=== PATIENT | male | born 1950 | race Caucasian/White ===

== ENCOUNTER 2016-12-01 19:46 | Inpatient (IN) ==
[2016-12-01] MEDS ORDERED: 0.9 % Sodium Chloride 1,000 ML IVC ONE (20:15)
--- NOTE | 2016-12-01 20:18 | Emergency Department Note ---
Disposition Clinical Impression: Pancolitis Leukocytosis Qualifiers: Leukocytosis type: unspecified Qualified Code(s): D72.829 - Elevated white blood cell count, unspecified Abdominal pain Qualifiers: Abdominal location: generalized Qualified Code(s): R10.84 - Generalized abdominal pain Disposition: Admitted As Inpatient Condition: Fair Abdominal Pain HPI - General Chief Complaint: ED Abdominal Pain Stated Complaint: 'abdominal pain" Source: patient Mode of arrival: EMS Limitations: no limitations Nursing Notes Reviewed: Yes Vital Signs Reviewed: Yes - History of Present Illness HPI Narrative: 66-year-old male history of hypertension and smoking abuse presents from the [place] for concerns of abdominal pain. Patient was evaluated the [facility] have lab work and a CAT scan of the abdomen pelvis performed. Patient states that she has been having these symptoms intermittently over the past 3 weeks. Patient finished a dose of Cipro and Flagyl 3 weeks ago. Patient has been having some issues of constipation in the past and was treated presumptively for diverticulitis. Patient states that he has been having intermittent abdominal pain it is noted be diffusely and worsened over the past 48 hours at the time of examination the patient is pain-free patient denies any dysuria or hematuria. Denies any fevers. Denies any history of inflammatory bowel disease. No chest pain or short of breath. Patient initially had issues with constipation and now has had a runny stool prior to arrival. Pt Subjective Complaint: abdominal pain Onset (ago): week(s) Consistency: intermittent Location: diffuse Pain Severity: now resolved - Related Data Home Medications Medication Instructions Recorded Confirmed Bisacodyl [Dulcolax] 10 mg RC AD PRN 12/01/16 12/01/16 Bisacodyl [Dulcolax] 15 mg PO HS PRN 12/01/16 12/01/16 Lisinopril [Zestril] 10 mg PO DAILY 12/01/16 12/01/16 Pantoprazole Sodium [Protonix] 40 mg PO DAILY 12/01/16 12/01/16 Simvastatin [Zocor] 10 mg PO HS 12/01/16 12/01/16 Tamsulosin [Flomax] 0.4 mg PO DAILY 12/01/16 12/01/16 Allergies Allergy/AdvReac Type Severity Reaction Status Date / Time No Known Allergies Allergy Verified 12/01/16 19:55 All systems ED: reviewed and negative except as stated. Constitutional: Reports: as per HPI. Denies: fever Eyes: Reports: as per HPI ENT ED: Reports: as per HPI Cardiovascular: Reports: as per HPI. Denies: chest pain Respiratory: Reports: as per HPI. Denies: dyspnea Gastrointestinal: Reports: as per HPI, abdominal pain, diarrhea. Denies: nausea , vomiting Genitourinary: Reports: as per HPI Musculoskeletal: Reports: as per HPI. Denies: back pain Integumentary: Reports: as per HPI Neurological: Reports: as per HPI Psychiatric: Reports: as per HPI Abdominal Pain PMH - Past Medical History Medical history: Reports: hypertension Physical Exam - General Limitations: no limitations General appearance: alert, in no apparent distress - Head Head exam: atraumatic, normal inspection - Eye Eye exam: Present: normal appearance, EOMI - ENT ENT exam: normal exam, mucous membranes moist - Neck Neck exam: Present: normal inspection, trachea midline - Chest Chest inspection: Present: normal inspection, symmetric chest wall rise - Respiratory Respiratory exam: Present: other (Diffusely decreased lung sounds). Absent: respiratory distress - Cardiovascular Cardiovascular exam: Present: regular rate, normal rhythm - Abdominal Exam Abdominal exam: Present: soft, Non-Tender. Absent: distention, guarding, rebound - Extremities Exam Extremities exam: Present: normal inspection. Absent: pedal edema - Back Exam Back exam: Present: normal inspection - Neurological Exam Neurological exam: Present: alert, oriented X3 - Skin Skin exam: Present: warm, dry, intact, normal color Course Course Narrative: Patient seen and examined earlier today at the [place]. Patient had a CAT scan of abdomen and pelvis done which shows pancolitis possibly related to C. difficile colitis but inflammatory bowel disease or less likely ischemic bowel disease cannot be excluded. Patient abdominal exam at the time of my arrival is benign. Nonsurgical. Patient resting, in no acute distress. Patient also had blood work that showed a leukocytosis of 16,000 electrolytes are unremarkable. Patient will be continuously to match her with pain control. Due to patient's age and the fact that he has pancolitis the patient will be admitted to the hospitalist service for GI consult. Vital Signs Temperature 98.2 F 12/01/16 19:55 Pulse Rate 83 12/01/16 19:55 Respiratory Rate 16 12/01/16 19:55 Blood Pressure 115/86 12/01/16 19:55 O2 Sat by Pulse Oximetry 96 12/01/16 19:55 Temperature 98.2 F 12/01/16 19:55 Pulse Rate 81 12/01/16 21:48 Respiratory Rate 16 12/01/16 22:16 Blood Pressure 135/79 12/01/16 22:16 O2 Sat by Pulse Oximetry 95 12/01/16 21:48 Oxygen Delivery Oxygen Delivery Room Air Abdominal Pain - MDM Narrative Medical decision making narrative: 66 year male presents for evaluation of abdominal pain. Patient studies and imaging were obtained at the [facility]. Patient had a CAT scan which showed pancolitis. Concern is that in this patient's age group with pancolitis and recommendation for GI evaluation patient would likely be best monitored as an inpatient with inpatient consult. Patient states that his pain has improved from prior evaluations. Patient is nontoxic-appearing. Patient's abdominal exam is nonsurgical. This plan of care was related to the patient who agrees. - Radiology Data Radiology results reviewed: Yes I reviewed the patient's radiology results. Radiology images from the [place] S.Lino.Sandi - Rudy Situation: Demographics Background: Presenting Complaint, Relevant PMH, Meds, & Allergies Assessment: Vital Signs, Course and respsone to treatment, Patient/Family Expectation, Pertinant Lab Results Recommendation: Barrier(s) to disposition, Recommendation based on pending studies, treatments, or consults S.B.AGiovanna Report Given to: Dr. Spike Grant Repor Time: 20:34
--- NOTE | 2016-12-01 20:36 | Internal Med History&Physical ---
Date of Encounter: 12/01/16 Time of Encounter: 20:35 Assessment and Plan (1) Pancolitis Current visit: Yes Status: Acute may be infective or inflammatory, possible c.diff colitis as per the CT scan showing pancolitis, finished taking cipro and flagyl 3 weeks ago for abdominal pain and diarrhea' not sure if he was tested for c. diff at that time, he had gone to urgent care. c. diff has been ordered now, he does give h/o being on antibiotics on 10/03 for dental abscess. will also order ESR, CRP, may need colonoscopy once acute inflammation resolves. will consult GI.(last colonoscopy 1.5 yrs ago, has hemorrhoids) will start IVF, PO flagyl for now, he has leucocytosis, possible moderate infection. contact precaution. (2) HTN (hypertension) Current visit: Yes Status: Acute BP stable, will continue home meds Qualifiers: Hypertension type: essential hypertension Qualified Code(s): I10 - Essential (primary) hypertension (3) Abdominal pain Current visit: Yes Status: Acute no abdominal pain now. CT abd showed pancolitis. will add percocet prn for abdominal pain. advance diet as tolerated. Qualifiers: Abdominal location: generalized Qualified Code(s): R10.84 - Generalized abdominal pain Internal Medicine - H&P: HPI Chief complaint: abdominal pain Admitted From: Home Plans for Post Hospital Care: Home History of present illness: Mr. Little is a 66 year old male with history of hypertension and smoking presents from the [place] for concerns of abdominal pain. Patient was evaluated at the [place] have lab work and a CAT scan of the abdomen pelvis performed. Patient states that he has been having these symptoms intermittently over the past 3 weeks. He was seen at urgent care and finished a dose of Cipro and Flagyl 3 weeks ago. Patient was having abdominal pain and diarrhea and that time. Abdominal x-ray was done and was told that he had constipation, he was prescribed Cipro and Flagyl along with laxatives. He reports that after completion of the course of antibiotics, he felt better, diarrhea resolved and then the abdominal pain was also better. However, Patient states that he has been having intermittent abdominal pain since he finished the antibiotics and also started having diarrhea, no blood in the stool,denies any dysuria or hematuria. Denies any fevers. Denies any history of inflammatory bowel disease. No chest pain or short of breath. Past Med Surg Social Fam HX - Past Medical History Medical history: hypertension Psychiatric history: no psych history - Social History Smoking Status: Current every day smoker Smokeless Tobacco Status: No Alcohol use: none Drug use: none Internal Medicine - H&P: Meds Bisacodyl [Dulcolax] 10 mg RC AD PRN 12/01/16 [History] Bisacodyl [Dulcolax] 15 mg PO HS PRN 12/01/16 [History] Lisinopril [Zestril] 10 mg PO DAILY 12/01/16 [History] Pantoprazole Sodium [Protonix] 40 mg PO DAILY 12/01/16 [History] Simvastatin [Zocor] 10 mg PO HS 12/01/16 [History] Tamsulosin [Flomax] 0.4 mg PO DAILY 12/01/16 [History] Allergies No Known Allergies Allergy (Verified 12/01/16 19:55) All Systems PM: A 10-system review of systems was performed and is negative for pertinent findings except as documented above in the HPI. - Constitutional Vitals: Temp Pulse Resp BP Pulse Ox 98.2 F 83 16 115/86 96 12/01/16 19:55 12/01/16 19:55 12/01/16 19:55 12/01/16 19:55 12/01/16 19:55 General appearance: Present: A&O X 3, no acute distress Exam: Neck supple Chestbilateral clear, no added sounds. CVS S1-S2, no murmurs rubs or gallops. Abdomen soft, nontender, bowel sounds are present. Extremities no edema. Neuro alert awake, no focal neuro deficits.
[2016-12-01] MEDS ORDERED: Ondansetron 4 MG/2 ML VIAL IVP PRN (21:07)
[2016-12-01] MEDS ORDERED: Naloxone 0.4 MG/ML INJ IVP PRN (21:07)
[2016-12-01] MEDS ORDERED: *HR* OxyCODONE/APAP 5/325 TABLET PO PRN (21:08)
[2016-12-01] MEDS: 0.9 % Sodium Chloride 1,000 ML IVC SCH (22:40)
[2016-12-01] MEDS: metroNIDAZOLE 500 MG TABLET PO SCH (22:41)
[2016-12-01] MEDS: Nicotine 14 MG PATCH.TD24 TD SCH (22:41)
[2016-12-02] MEDS: *HR* Heparin 5,000 UNIT/ML VIAL SQ SCH ×2 (05:43→16:58)
[2016-12-02 06:05] LABS: Basophils # 0.1 K/mcL (0.0-0.2); Basophils % 0.5 %; Eosinophils # 0.4 K/mcL (0.0-0.6); Eosinophils % 3.8 %; Immature Granulocytes % 0.4 % (0-4); Lymphocytes # 1.7 K/mcL (0.6-4.6); Lymphocytes % 16.1 %; Mean Corpuscular HGB Conc 35.1 g/dL (31.6-35.5); Mean Corpuscular Hemoglobin 31.6 pg (28.0-33.3); Mean Corpuscular Volume 89.8 fL (83.0-100.0); Mean Platelet Volume 11.3 fL (9.4-12.4); Monocytes % 9.9 %; Neutrophils # 7.2 K/mcL (1.6-8.9); Platelet Count 295 K/mcL (140-400); Red Blood Count 4.12 M/mcL (4.19-5.50); Red Cell Distribution Width 12.3 % (11.5-14.5); Segmented Neutrophils % 69.3 %
[2016-12-02 06:22] LABS: BUN/Creatinine Ratio 7 (6-26); Calcium 8.2 mg/dL (8.6-10.8); Carbon Dioxide 24 mEq/L (19-29); Chloride 100 mEq/L (98-109); Glucose 66 mg/dL (70-99); Magnesium 1.5 mg/dL (1.6-2.6); Osmolality,Calculated 271 (280-300); Phosphorous 3.5 mg/dL (2.3-4.7); Potassium 3.3 mEq/L (3.5-4.5); Sodium 133 mEq/L (136-145); eGFR For African Americans > 60 (> 60); eGFR For Non-African Americans > 60 (> 60)
[2016-12-02 06:23] LABS: Blood Urea Nitrogen 5 mg/dL (8-26)
[2016-12-02] MEDS: Nicotine 14 MG PATCH.TD24 TD SCH (07:24)
[2016-12-02] MEDS: metroNIDAZOLE 500 MG TABLET PO SCH ×3 (07:24→21:14)
[2016-12-02] MEDS: 0.9 % Sodium Chloride 1,000 ML IVC SCH ×2 (07:31→21:00)
[2016-12-02] MEDS ORDERED: Potassium Chloride Elixir 20 MEQ/15 ML UDC PO ONE (08:51)
[2016-12-02] MEDS ORDERED: Magnesium Sulfate 2 GM in D5% in Water 100 ML IVPB ONE (08:54)
[2016-12-02] MEDS ORDERED: Pantoprazole 40 MG VIAL IVP SCH (09:00)
--- NOTE | 2016-12-02 10:46 | Internal Med Progress Note ---
Date of Encounter: 12/02/16 Time of Encounter: 10:44 - Subjective Interval history: patient has no abdominal pain. he had a watery BM this morning. - Constitutional Vitals: Temp Pulse Resp BP Pulse Ox 98.2 F 75 16 116/72 97 12/02/16 06:59 12/02/16 06:59 12/02/16 06:59 12/02/16 06:59 12/02/16 06:59 General appearance: Present: cooperative, A&O X 3, pleasant, no acute distress, answers questions appropriately - Respiratory Respiratory exam: Present: CTAB - Cardiovascular Cardiovascular exam: Present: RRR - GI/Abdominal GI/Abdominal exam: Present: normal bowel sounds, soft. Absent: distended, tenderness - Extremities Exam Extremities exam: Absent: pedal edema - Back Exam Back exam: Absent: CVA tenderness (L), CVA tenderness (R) - Neurological Exam Neurological exam: Present: alert, no focal deficits, strengths equal and symetr throughout. Absent: facial droop, speech deficit - Skin Skin exam: Absent: rash Internal Medicine: Result - Labs CBC & Chem 7: 12/02/16 05:26 12/02/16 05:26 Consult Discharge Plan - Plan Referrals: [facility] [Outside]
--- NOTE | 2016-12-02 11:57 | Gastroenterology Consult Note ---
<Vivek Macedo Zuri - Last Filed: 12/02/16 11:55> Date of Encounter: 12/02/16 Time of Encounter: 11:00 - Assessment and plan (1) C. difficile colitis Current Visit: Yes Status: Acute Assessment and plan: C diff positive. Recommend treating C diff with Flagyl. (2) Pancolitis Current Visit: Yes Status: Acute Assessment and plan: Secondary to C diff. Recommend continuing treatment with Flagyl to complete 2 week course. (3) Abdominal pain Current Visit: Yes Status: Acute Assessment and plan: Resolved. CT showed pancolitis. Qualifiers: Abdominal location: generalized Qualified Code(s): R10.84 - Generalized abdominal pain - Time Spent With Patient Total time spent is greater than 50% in coordination of care (as documented) at patient's floor/unit and/or counseling patient: GI History of Present Illness - Data of Consult Patient: new to practice Consult date: 12/02/16 Requesting Physician: Maria Esther Alvarez - Consult Narrative Reason for consult: Pancolitis History of present illness: Mr. Little is a 66 year old male with PMHx of HTN presented from the [place] for concerns of abdominal pain. [facility] and [facility] and CT A /P completed. CT showed pancolitis possibly related to C. difficile colitis, IBD , or less likely ischemic bowel disease. He reports the symptoms have been present intermittently over the past 3 weeks, was seen in urgent care and completed a course of Cipro and Flagyl 3 weeks ago. At that time he was having abdominal pain and diarrhea. Upon completing the course of Cipro and Flagyl his abdominal pain was improved and diarrhea had resolved. He began experiencing intermittent abdominal pain and diarrhea after completing his course of antibiotics. He denies fever, melena, hematochezia, history of IBD, chest pain, or shortness of breath. Procedures: Colonoscopy 1.5 years ago NSAIDs: None Anticcoagulation: None Past Med Surg Social Fam HX - Past Medical History Medical history: hypertension Psychiatric history: no psych history - Social History Smoking Status: Current every day smoker Smokeless Tobacco Status: No Alcohol use: none Drug use: none - Gastrointestinal Gastrointestinal: Present: as per HPI - Constitutional Constitutional: as per HPI - EENT Eyes: as per HPI Ears: Present: as per HPI Nose, mouth and throat: Present: as per HPI - Cardiovascular Cardiovascular ROS: Present: as per HPI - Respiratory Respiratory IM: Present: as per HPI - Genitourinary Genitourinary: Absent: change in color, Urinary frequency - Neurological ROS Neurological GI: Present: as per HPI - Hematologic/Lymphatic Hematologic/Lymphatic pediatric: Present: as per HPI - Musculoskeletal Musculoskeletal ROS GI: Present: as per HPI - Integumentary Integumentary GI: Present: as per HPI - Psychiatric ROS Psychiatric GI: Present: as per HPI - Endocrine Endocrine IM: Present: as per HPI - Constitutional Vitals: Temp Pulse Resp BP Pulse Ox 97.6 F 69 16 112/73 96 12/02/16 11:01 12/02/16 11:01 12/02/16 11:01 12/02/16 11:01 12/02/16 11:01 General appearance: Present: cooperative, A&O X 3, no acute distress, answers questions appropriately - Head Head exam: Present: atraumatic, normocephalic - Eye Eye exam: Present: normal appearance, sclera anicteric - ENT ENT exam: Present: mucous membranes moist - Neck Neck exam general surgery: Present: normal inspection, trachea midline - Respiratory Respiratory exam: Present: CTAB. Absent: rales, rhonchi - Cardiovascular Cardiovascular exam: Present: RRR, +S1, +S2 - GI/Abdominal GI/Abdominal exam: Present: soft, no peritoneal signs. Absent: distended, firm , guarding, tenderness - Rectal Rectal exam: Present: deferred - Extremities Exam Extremities exam: Present: warm - Neurological Exam Neurological exam: Present: no focal deficits - Psychiatric Psychiatric exam: Present: normal affect, normal mood - Skin Skin exam: Present: dry, intact, normal color, warm Results - Labs CBC & Chem 7: 12/02/16 05:26 12/02/16 05:26 Labs: Last Result Calcium 8.2 mg/dL (8.6-10.8) L 12/02/16 05:26 Entire Visit Hgb 13.0 g/dL (12.9-16.9) 12/02/16 05:26 Hct 37.0 % (37.5-50.1) L 12/02/16 05:26 Consult Discharge Plan - Plan Referrals: [facility] [Outside] <Herminia James - Last Filed: 12/02/16 15:17> Date of Encounter: 12/02/16 Time of Encounter: 13:00 - Time Spent With Patient Total time spent is greater than 50% in coordination of care (as documented) at patient's floor/unit and/or counseling patient: GI History of Present Illness - Data of Consult Requesting Physician: Maria Esther Alvarez - Consult Narrative History of present illness: Mr. Little is a 66 year old male - Constitutional Vitals: Temp Pulse Resp BP Pulse Ox 98.2 F 72 14 129/74 96 12/02/16 14:57 12/02/16 14:57 12/02/16 14:57 12/02/16 14:57 12/02/16 14:57 Results - Labs CBC & Chem 7: 12/02/16 05:26 12/02/16 05:26 Labs: Last Result Calcium 8.2 mg/dL (8.6-10.8) L 12/02/16 05:26 Entire Visit Hgb 13.0 g/dL (12.9-16.9) 12/02/16 05:26 Hct 37.0 % (37.5-50.1) L 12/02/16 05:26 - Attending Attestation I examined this patient and my medical decision-making was reviewed with the [employer]/PA/Advanced Practice Nurse/Resident Physician. I agree with the documented findings, disposition and treatment plan as described except to the extent set forth below. Pt with C-diff colitis. FLORECITA valladares/jayden
[2016-12-02] MEDS: Vancomycin Oral Soln 250 MG/2.5 ML UDC PO SCH ×3 (15:07→21:20)
[2016-12-02] MEDS: Lactobacillus 1 EACH CAP.SPRINK PO SCH ×2 (15:07→21:14)
--- NOTE | 2016-12-02 15:10 | Internal Med Progress Note ---
<Kaleb Vasques - Last Filed: 12/02/16 17:12> Date of Encounter: 12/02/16 Time of Encounter: 08:30 - Assessment and plan (1) C. difficile colitis Current Visit: Yes Status: Acute Assessment and plan: -Today, patient was found to be positive for Clostridium difficile toxin. -GI consult was completed with the following recommendations: Recommend treating C. diff with Flagyl and vancomycin by mouth. Additionally recommend continuing treatment with Flagyl to complete 2 week course. -Patient is currently on Flagyl 500 mg PO TID and Vancomycin 250 mg PO QID. (2) Pancolitis Current Visit: Yes Status: Acute Assessment and plan: -CT evidence of pancolitis which is most likely secondary to current Clostridium difficile infection. -See above for current Clostridium difficile infection management and GI recommendations. (3) Leukocytosis Current Visit: Yes Status: Acute Assessment and plan: -Yesterday, patient had a [facility].5 [facility]. -Leukocytosis has since resolved with a current WBC count of 10.4 Qualifiers: Leukocytosis type: unspecified Qualified Code(s): D72.829 - Elevated white blood cell count, unspecified (4) Hyponatremia Current Visit: Yes Status: Acute Assessment and plan: -Patient's current sodium level is 133. -This is most likely secondary to the fluids that he has received since admission. -We will continue to monitor (5) HTN (hypertension) Current Visit: Yes Status: Acute Assessment and plan: -Continue patient on lisinopril 10 mg PO. Qualifiers: Hypertension type: essential hypertension Qualified Code(s): I10 - Essential (primary) hypertension (6) GERD (gastroesophageal reflux disease) Current Visit: Yes Status: Acute Assessment and plan: -Patient is currently on Pepcid 20 mg. Qualifiers: Qualified Code(s): K21.9 - Gastro-esophageal reflux disease without esophagitis (7) HLD (hyperlipidemia) Current Visit: Yes Status: Acute Assessment and plan: -Continue patient on simvastatin 10 mg. Qualifiers: Qualified Code(s): E78.5 - Hyperlipidemia, unspecified (8) Hypomagnesemia Current Visit: Yes Status: Acute Assessment and plan: replace (9) DVT prophylaxis Current Visit: Yes Status: Acute Assessment and plan: -Continue patient on heparin 5000 units SQ q12 - Subjective Interval history: Patient was seen and examined at bedside this morning. Patient denies any abdominal pain currently. Denies any fever, chills, chest pain, shortness of breath, nausea, vomiting. He does admit to one watery bowel movement this morning. Patient is currently on full liquid diet. All questions were answered. Patient has no complaints this time. - Constitutional Vitals: Temp Pulse Resp BP Pulse Ox 98.2 F 72 14 129/74 96 12/02/16 14:57 12/02/16 14:57 12/02/16 14:57 12/02/16 14:57 12/02/16 14:57 General appearance: Present: A&O X 3, no acute distress - Head Head exam: Present: atraumatic, normal inspection, normocephalic - Eye Eye exam: Present: normal appearance, sclera anicteric - Neck Neck exam general surgery: Present: normal inspection, supple, trachea midline. Absent: lymphadenopathy, tenderness, thyromegaly - Respiratory Respiratory exam: Present: CTAB. Absent: accessory muscle use, rales, respiratory distress, rhonchi, stridor, wheezes, tachypnea - Cardiovascular Cardiovascular exam: Present: RRR, +S1, +S2. Absent: bradycardia, diastolic murmur, gallop, JVD, rubs, systolic murmur - GI/Abdominal GI/Abdominal exam: Present: normal bowel sounds, soft, tenderness (Mild tenderness to palpation in the periumbilical region and the left lower quadrant. ), no peritoneal signs. Absent: distended, guarding, mass, rigid - Extremities Exam Extremities exam: Present: radial pulses palpable and symetrical (2/4) Additional comments: Dorsalis pedis and posterior tibial pulses were equal at 2/4 and symmetric bilaterally Internal Medicine: Result - Labs CBC & Chem 7: 12/02/16 05:26 12/02/16 05:26 Consult Discharge Plan - Plan Referrals: [facility] [Outside] <Maria Esther Alvarez - Last Filed: 12/02/16 18:32> Date of Encounter: 12/02/16 - Constitutional Vitals: Temp Pulse Resp BP Pulse Ox 98.2 F 72 14 129/74 96 12/02/16 14:57 12/02/16 14:57 12/02/16 14:57 12/02/16 14:57 12/02/16 14:57 Internal Medicine: Result - Labs CBC & Chem 7: 12/02/16 05:26 12/02/16 05:26 - Attending Attestation I examined this patient and reviewed laboratory, imaging and all diagnostic data. My medical decision-making was reviewed with Dr Vasques - Resident Physician. I agree with the documented findings, disposition and treatment plan as described above
[2016-12-02] MEDS ORDERED: Famotidine 20 MG TABLET PO SCH (21:00)
[2016-12-03] MEDS: 0.9 % Sodium Chloride 1,000 ML IVC SCH (05:17)
[2016-12-03] MEDS: *HR* Heparin 5,000 UNIT/ML VIAL SQ SCH (05:17)
[2016-12-03 05:47] LABS: Basophils # 0.1 K/mcL (0.0-0.2); Basophils % 0.8 %; Eosinophils # 0.4 K/mcL (0.0-0.6); Eosinophils % 4.9 %; Hematocrit 39.1 % (37.5-50.1); Hemoglobin 13.7 g/dL (12.9-16.9); Immature Granulocytes % 0.6 % (0-4); Lymphocytes # 1.6 K/mcL (0.6-4.6); Lymphocytes % 20.1 %; Mean Corpuscular Hemoglobin 31.5 pg (28.0-33.3); Mean Corpuscular Volume 89.9 fL (83.0-100.0); Mean Platelet Volume 11.3 fL (9.4-12.4); Monocytes # 0.9 K/mcL (0.0-1.3); Monocytes % 11.8 %; Neutrophils # 4.9 K/mcL (1.6-8.9); Platelet Count 309 K/mcL (140-400); Red Blood Count 4.35 M/mcL (4.19-5.50); Red Cell Distribution Width 12.4 % (11.5-14.5); Segmented Neutrophils % 61.8 %
[2016-12-03 06:02] LABS: Calcium 8.5 mg/dL (8.6-10.8); Carbon Dioxide 27 mEq/L (19-29); Chloride 104 mEq/L (98-109); Glucose 84 mg/dL (70-99); Potassium 3.9 mEq/L (3.5-4.5); Sodium 136 mEq/L (136-145); eGFR For African Americans > 60 (> 60); eGFR For Non-African Americans > 60 (> 60)
[2016-12-03 07:01] LABS: BUN/Creatinine Ratio 4 (6-26); Blood Urea Nitrogen 3 mg/dL (8-26); Osmolality,Calculated 278 (280-300)
[2016-12-03 07:26] LABS: Magnesium 1.8 mg/dL (1.6-2.6)
[2016-12-03 08:13] VITALS: BP 151/84
[2016-12-03] MEDS: Nicotine 14 MG PATCH.TD24 TD SCH (08:33)
[2016-12-03] MEDS: Lactobacillus 1 EACH CAP.SPRINK PO SCH (08:33)
[2016-12-03] MEDS: Vancomycin Oral Soln 250 MG/2.5 ML UDC PO SCH (08:33)
[2016-12-03] MEDS: metroNIDAZOLE 500 MG TABLET PO SCH (08:33)
--- NOTE | 2016-12-03 10:47 | Discharge Summary ---
<Kaleb Vasques - Last Filed: 12/03/16 10:32> Date of Encounter: 12/03/16 Time of Encounter: 08:30 - Discharge Diagnosis (1) C. difficile colitis Status: Acute (2) Pancolitis Status: Acute (3) Leukocytosis Status: Acute Qualifiers: Leukocytosis type: unspecified Qualified Code(s): D72.829 - Elevated white blood cell count, unspecified (4) Hyponatremia Status: Acute (5) HTN (hypertension) Status: Acute Qualifiers: Hypertension type: essential hypertension Qualified Code(s): I10 - Essential (primary) hypertension (6) GERD (gastroesophageal reflux disease) Status: Acute Qualifiers: Qualified Code(s): K21.9 - Gastro-esophageal reflux disease without esophagitis (7) HLD (hyperlipidemia) Status: Acute Qualifiers: Qualified Code(s): E78.5 - Hyperlipidemia, unspecified (8) Hypomagnesemia Status: Acute (9) DVT prophylaxis Status: Acute - Discharge Medications Prescriptions: Lactobacillus [Culturelle] 1 each PO BID 30 Days MetroNIDAZOLE [Flagyl] 500 mg PO TID 11 Days Home Medications: Lisinopril [Zestril] 10 mg PO DAILY 12/01/16 [History] Pantoprazole Sodium [Protonix] 40 mg PO DAILY 12/01/16 [History] Simvastatin [Zocor] 10 mg PO HS 12/01/16 [History] Tamsulosin [Flomax] 0.4 mg PO DAILY 12/01/16 [History] Lactobacillus [Culturelle] 1 each PO BID 30 Days 12/03/16 [Rx] MetroNIDAZOLE [Flagyl] 500 mg PO TID 11 Days 12/03/16 [Rx] Allergies/Adverse Reactions: Allergies No Known Allergies Allergy (Verified 12/01/16 19:55) Date of admission: 12/02/16 08:39 Primary care physician: [facility] Discharging clinician: Kaleb Vasques - Patient Status Disposition: Home, Self-Care Condition: Fair Functional capacity at discharge: independent ambulation Overall status at discharge: patient is progressing back to baseline - Discharge Instructions Follow Up With: [facility] [Outside] Additional Instructions: Follow-up appointments: If there is not an appointment listed below, please call your physician and schedule a follow-up appointment. If you have congestive heart failure and your symptoms return, make an appointment with your physician. Medication List: Carry an up to date list of medications you are taking at all time. We have given you an updated medication list including any new medications that you have been prescribed. Please provide that list to your primary provider Symptoms: If your condition changes or you experience any of the following symptoms, notify your physician immediately: Unusual or worsening pain, fever, persistent nausea and vomiting, bleeding, increase in swelling (especially in your legs), sudden weight gain, extreme dizziness, chest pain, increased drainage or redness from a wound or incision. Go to the emergency department if you experience a problem with breathing. Weights: If you have a history of swelling or shortness of breath, weigh yourself daily and notify your physician if you have a weight gain of two or more pounds in one day or 5 or more pounds in a week. If you experience any of the warning signs for stroke: Sudden numbness or weakness of the face, arm or leg; especially on one side of the body, sudden confusion, trouble speaking or understanding, sudden trouble seeing in one or both eyes, sudden trouble walking, dizziness, loss of balance or coordination, sudden sever headache with no cause; Call 911 or go to the emergency room. Stroke is a medical emergency. Some risk factors for stroke: Age, cigarette smoking, diabetes, excessive alcohol consumption, family history , high blood pressure, overweight, physical inactivity, prior stroke, heart attack, diagnosis of carotid artery stenosis or other artery disease. If you smoke, STOP: Smoking or tobacco use significantly increases your risk of heart and lung disease. Your chance of disease greatly increases if you continue to smoke. For more information, call the [place] tobacco quit line for smoking cessation QUIT-NOW ( ) - Diet and Activity Activity: increase activity as tolerated Diet: advance to your usual diet Hospital course: Mr. Little is a 66 year old male with a past medical history of hypertension and hyperlipidemia who presented to the [facility] from the [place] for assessment of abdominal pain x 3 weeks. At the [place], abdominal CT performed would show pancolitis. Patient had previously been treated 2 weeks ago with Flagyl and ciprofloxacin for the same abdominal pain issues and was previously treated with antibiotics in September 2016 for a dental abscess. He was found to be Clostridium difficile toxin positive. He was started on Flagyl 500 mg by mouth on 4/17. Patient has been afebrile since admission and denies any abdominal pain today. The patient has progressed well throughout his admission and is hemodynamically stable and ready for discharge. Today he states that he is starting to have more formed stools. The patient will be discharged with an 11 day course of Flagyl 500 mg by mouth TID to complete his treatment of Clostridium difficile infection. - Time Spent with Patient Total time spent providing and/or coordinating discharge services: - Constitutional Vitals: Temp Pulse Resp BP Pulse Ox 98.3 F 58 14 151/84 96 12/03/16 08:12 12/03/16 08:12 12/03/16 08:12 12/03/16 08:12 12/03/16 08:12 General appearance: Present: A&O X 3, no acute distress - Head Head exam: Present: atraumatic, normal inspection, normocephalic - Eye Eye exam: Present: conjuntiva pink, sclera anicteric - Neck Neck exam general surgery: Present: supple, trachea midline. Absent: lymphadenopathy - Respiratory Respiratory exam: Present: CTAB. Absent: accessory muscle use, rales, rhonchi, wheezes - Cardiovascular Cardiovascular exam: Present: RRR, +S1, +S2. Absent: diastolic murmur, gallop, rubs, systolic murmur - GI/Abdominal GI/Abdominal exam: Present: normal bowel sounds, soft, no peritoneal signs. Absent: distended, tenderness - Extremities Exam Extremities exam: Present: warm. Absent: calf tenderness, cyanotic, pedal edema - Neurological Exam Neurological exam: Present: oriented X3, no focal deficits. Absent: facial droop, speech deficit - Skin Skin exam: Present: dry, intact <Maria Esther Alvarez - Last Filed: 12/03/16 16:16> Date of Encounter: 12/03/16 Date of admission: 12/02/16 08:39 Primary care physician: PCP [place] Hospital course: Mr. Little is a 66 year old male - Time Spent with Patient Total time spent providing and/or coordinating discharge services: - Constitutional Vitals: Temp Pulse Resp BP Pulse Ox 98.3 F 58 14 151/84 96 12/03/16 08:12 12/03/16 08:12 12/03/16 08:12 12/03/16 08:12 12/03/16 08:12 - Attending Attestation I examined this patient and reviewed laboratory, imaging and all diagnostic data. My medical decision-making was reviewed with Dr Vasques - Resident Physician. I agree with the documented findings, disposition and treatment plan as described above
== END 2016-12-03 13:42 | disposition home or self-care (01) | DRG 372 ==
LOC: EMEROO 19:46 → 3ANU 20:48 → INTOOBSV 20:48 → 3ANU 22:00
PROVIDERS: ADMIT Internal Medicine Endocrinology, Diabetes & Metabolism; ATTEND Internal Medicine